=== PATIENT | male | born 1950 | race Hispanic/Latino ===

== ENCOUNTER 2017-01-17 10:40 | Emergency (ER) | payer MEDICARE, BC ==
[2017-01-17 10:44] VITALS: BMI 36.9
[2017-01-17] MEDS ORDERED: Sodium Chloride 0.9% 500 ML IV STA (11:21)
--- NOTE | 2017-01-17 11:25 | ED PDOC ---
Arrival/HPI - General Chief Complaint: Dizziness/Lightheaded Time Seen by Provider: 01/17/17 11:12 Historian: Patient - History of Present Illness Narrative History of Present Illness (Text): 01/17/17 11:174 A 66 year old male, whose past medical history includes seasonal allergies, presents to the emergency department complaining of dizziness. Patient reports this morning upon waking up he was fine and then when he got to work he started to feel dizziness. Patient describes the dizziness as the sensation of the room spinning. Dizziness is worse with movement and better at rest. Patient notes associated nausea, one episode on non bloody non bilious vomiting, and a mild headache. Patient notes some sinus congestion due to his allergies but denies any chest pain, chest palpitations, recent cold, cough, fever, runny nose, or any other complaints at this time. Patient does not have an known drug allergies , does not smoke, does not use drugs, but does drink occasional. PMD: Dr. Borrero Time/Duration: 1-3 hours Symptom Onset: Sudden Symptom Course: Unchanged Quality: Other Activities at Onset: Light Context: Work Associated Symptoms (Text): 01/17/17 12:18 Patient got up this morning feeling fine. While at work he developed acute onset of dizziness which he describes as a spinning sensation. There has been some nausea with one episode of vomiting. No headache. No head trauma. No numbness tingling or paresthesias. No weakness. No neck pain. No trauma. He has never experienced this previously. No chest pain palpitations or dyspnea. Past Medical History - Provider Review Nursing Documentation Reviewed: Yes - Infectious Disease Hx of Infectious Diseases: None - Psychiatric Hx Substance Use: No - Surgical History Hx Appendectomy: Yes - Anesthesia Hx Anesthesia: Yes Hx Anesthesia Reactions: No Family/Social History - Physician Review Nursing Documentation Reviewed: Yes Family/Social History: Unknown Family HX Smoking Status: Never Smoked Hx Alcohol Use: Yes Frequency of alcohol use: Socially Hx Substance Use: No Allergies/Home Meds Allergies/Adverse Reactions: Allergies No Known Allergies Allergy (Verified 01/17/17 10:43) Home Medications: Home Meds Medication Instructions Recorded Confirmed Aspirin [Ecotrin] 325 mg PO DAILY 01/17/17 01/17/17 DiphenhydrAMINE [Benadryl] 25 mg PO PRN PRN 06/01/17 06/01/17 Review of Systems - Physician Review All systems were reviewed & negative as marked: Yes - Review of Systems Constitutional: absent: Fevers ENT: Sinus Congestion. absent: Rhinorrhea Respiratory: absent: Cough Cardiovascular: absent: Chest Pain, Palpitations Gastrointestinal: Nausea, Vomiting Neurological: Headache, Dizziness Physical Exam Vital Signs Reviewed: Yes Vital Signs Temp Pulse Resp BP Pulse Ox 01/17/17 10:46 97.6 F 63 18 158/85 H 97 Temperature: Afebrile Blood Pressure: Hypertensive Pulse: Regular Respiratory Rate: Normal Appearance: Positive for: Well-Appearing, Non-Toxic, Uncomfortable Pain Distress: None Mental Status: Positive for: Alert and Oriented X 3 Finger Stick Blood Glucose: 147 - Systems Exam Head: Present: Atraumatic, Normocephalic Pupils: Present: PERRL Extroacular Muscles: Present: EOMI Conjunctiva: Present: Normal Ears: Present: NORMAL TM, Normal Canal. No: Erythema Mouth: Present: Moist Mucous Membranes Pharnyx: No: ERYTHEMA, EXUDATE, TONSILS ENLARGED Neck: Present: Normal Range of Motion Respiratory/Chest: Present: Clear to Auscultation, Good Air Exchange. No: Respiratory Distress, Accessory Muscle Use Cardiovascular: Present: Regular Rate and Rhythm, Normal S1, S2. No: Murmurs Abdomen: Present: Normal Bowel Sounds. No: Tenderness, Distention, Peritoneal Signs, Rebound, Guarding Back: Present: Normal Inspection Upper Extremity: Present: Normal Inspection. No: Cyanosis, Edema Lower Extremity: Present: Normal Inspection. No: Edema Neurological: Present: GCS=15, CN II-XII Intact, Speech Normal, Motor Func Grossly Intact, Normal Sensory Function, Normal Cerebellar Funct Skin: Present: Warm, Dry, Normal Color. No: Rashes Psychiatric: Present: Alert, Oriented x 3, Normal Insight, Normal Concentration Medical Decision Making ED Course and Treatment: 01/17/17 11:14 Impression: A 66 year old male with dizziness. Differential Diagnosis include but are not limited to: ACS vs. Vertigo Plan: -- EKG -- Head CT -- Labs -- Antivert, Zofran and IV Fluids -- Reassess and disposition Progress Notes: 01/17/17 12:20 CT scan of the head as read by the radiologist shows no acute findings. 01/17/17 12:24 EKG shows normal sinus rhythm rate approximately 60 with PACs and no acute ST or T-wave changes 01/17/17 12:38 Symptoms markedly improved. Nausea has completely resolved. Dizziness is almost gone. Discharged home accompanied by . Follow-up with PMD. Follow up in ER as needed. - Lab Interpretations Lab Results: 01/17/17 11:37 01/17/17 11:37 Lab Results 01/17/17 11:37: Sodium 137, Potassium 4.3, Chloride 102, Carbon Dioxide 26, Anion Gap 13, BUN 20, Creatinine 0.9, Est GFR ( Amer) > 60, Est GFR (Non- Af Amer) > 60, Random Glucose 129 H, Calcium 9.3, Magnesium 2.0, Total Bilirubin 0.7, AST 29, ALT 37, Alkaline Phosphatase 57, Lactate Dehydrogenase 430, Total Creatine Kinase 97, Troponin I < 0.01, Total Protein 7.6, Albumin 4.3 , Globulin 3.4, Albumin/Globulin Ratio 1.3 01/17/17 11:37: WBC 8.5, RBC 4.70, Hgb 14.3, Hct 41.6 L, MCV 88.5, MCH 30.4, MCHC 34.4, RDW 13.7, Plt Count 253, MPV 9.6, Gran % 78.0 H, Lymph % (Auto) 12.8 L, Trigg % (Auto) 8.0 H, Eos % (Auto) 0.8 L, Baso % (Auto) 0.4, Gran # 6.67 H, Lymph # 1.1 L, Trigg # 0.7 H, Eos # 0.1, Baso # 0.03 I have reviewed the lab results: Yes - RAD Interpretation Radiology Orders: 01/17/17 11:21 HEAD W/O CONTRAST [CT] Stat CHEST ONE VIEW [RAD] Stat Chest 1 view shows no infiltrate effusion or cardiomegaly Miter Cutter: ED Physician - Medication Orders Current Medication Orders: Discontinued Medications Sodium Chloride (Sodium Chloride 0.9%) 500 mls @ 1,000 mls/hr IV .Q30M STA Stop: 01/17/17 11:50 Last Admin: 01/17/17 11:36 Dose: 1,000 mls/hr Meclizine HCl (Antivert) 25 mg PO ONCE ONE Stop: 01/17/17 11:23 Last Admin: 01/17/17 11:36 Dose: 25 mg Ondansetron HCl (Zofran Inj) 4 mg IVP ONCE ONE Stop: 01/17/17 11:23 Last Admin: 01/17/17 11:36 Dose: 4 mg - Scribe Statement The provider has reviewed the documentation as recorded by the Wei New Provider Scribe Attestation: All medical record entries made by the Wei were at my direction and personally dictated by me. I have reviewed the chart and agree that the record accurately reflects my personal performance of the history, physical exam, medical decision making, and the department course for this patient. I have also personally directed, reviewed, and agree with the discharge instructions and disposition. Disposition/Present on Arrival - Present on Arrival Any Indicators Present on Arrival: No History of DVT/PE: No History of Uncontrolled Diabetes: No Urinary Catheter: No History of Decub. Ulcer: No History Surgical Site Infection Following: None - Disposition Have Diagnosis and Disposition been Completed?: Yes Diagnosis: Vertigo Disposition: HOME/ ROUTINE Disposition Time: 12:39 Patient Plan: Discharge Condition: IMPROVED Discharge Instructions (ExitCare): Vertigo (ED) Additional Instructions: Follow-up with PMD. Follow-up in the ER as needed. Prescriptions: Meclizine [Meclizine*] 25 mg PO Q6 #20 tab Ondansetron [Zofran Odt] 4 mg SL Q6 #20 odt Referrals: Nick Borrero MD [Primary Care Provider] - Follow up with primary
[2017-01-17 11:39] LABS: ADD MANUAL DIFF? NO
[2017-01-17 11:49] LABS: BASO # 0.03 K/mm3 (0.0-2.0); BASO % 0.4 % (0.0-3.0); EOS # 0.1 (0.0-0.7); EOS % 0.8 % (1.5-5.0); GRAN # 6.67 (1.4-6.5); HEMATOCRIT 41.6 % (42.0-52.0); LYMPH # 1.1 (1.2-3.4); LYMPH % 12.8 % (22.0-35.0); MEAN CELL VOLUME 88.5 fL (80.0-105.0); MEAN CORPUSCULAR HEMOGLOBIN 30.4 pg (25.0-35.0); MEAN CORPUSCULAR HGB CONC 34.4 g/dl (31.0-37.0); MEAN PLATELET VOLUME 9.6 fl (7.0-11.0); MONO # 0.7 (0.1-0.6); PLATELET COUNT 253 10^3/uL (120.0-450.0); RED CELL DISTRIBUTION WIDTH 13.7 % (11.5-14.5); WHITE BLOOD COUNT 8.5 10^3/ul (4.5-11.0)
[2017-01-17 11:58] LABS: ALB/GLOB RATIO 1.3 (1.1-1.8); ALKALINE PHOSPHATASE 57 U/L (38-133); ALT/SGPT 37 U/L (7-56); AST/SGOT 29 U/L (15-59); BILIRUBIN,TOTAL 0.7 mg/dL (0.2-1.3); BLOOD UREA NITROGEN 20 mg/dL (7-21); CALCIUM 9.3 mg/dL (8.4-10.5); CARBON DIOXIDE 26 mmol/L (21-33); CHLORIDE 102 mmol/L (98-107); GFR AFRICAN-AMERICAN > 60; GLUCOSE,RANDOM 129 mg/dL (70-110); POTASSIUM 4.3 mmol/L (3.6-5.0); SODIUM 137 mmol/L (132-148); TOTAL PROTEIN 7.6 g/dL (5.8-8.3)
[2017-01-17 12:10] LABS: TROPONIN I < 0.01 ng/mL
--- NOTE | 2017-01-17 12:13 | CT ---
PROCEDURE: CT HEAD WITHOUT CONTRAST. HISTORY: dizzy COMPARISON: None available. TECHNIQUE: Axial computed tomography images were obtained through the head/brain without intravenous contrast. Radiation dose: Total exam DLP = 801 mGy-cm. This CT exam was performed using one or more of the following dose reduction techniques: Automated exposure control, adjustment of the mA and/or kV according to patient size, and/or use of iterative reconstruction technique. FINDINGS: HEMORRHAGE: No intracranial hemorrhage. BRAIN: No mass effect or edema. No atrophy or chronic microvascular ischemic changes. VENTRICLES: Unremarkable. No hydrocephalus. CALVARIUM: Unremarkable. PARANASAL SINUSES: Unremarkable as visualized. No significant inflammatory changes. MASTOID AIR CELLS: Unremarkable as visualized. No inflammatory changes. OTHER FINDINGS: None. IMPRESSION: Normal CT of the Head.
[2017-01-17 12:47] VITALS: BP 148/78; PULSE 60; RESP 19; TEMP 97.3; O2SAT 96
--- NOTE | 2017-01-17 13:49 | RAD ---
PROCEDURE: CHEST RADIOGRAPH, 1 VIEW HISTORY: Dizziness COMPARISON: None available. FINDINGS: LUNGS: The lungs are well inflated and clear. PLEURA: No pneumothorax or pleural fluid seen. CARDIOVASCULAR: Normal. OSSEOUS STRUCTURES: No significant abnormalities. VISUALIZED UPPER ABDOMEN: Normal. OTHER FINDINGS: None. IMPRESSION: No active pulmonary disease.
--- NOTE | 2017-01-17 16:13 | CARD ---
APPROVED REPORT EKG Measurement Heart [id number] [place] [id number] [id number] <Conclusion> Sinus rhythm with occasional APCs Otherwise normal ECG
== END 2017-01-17 12:48 | disposition home or self-care (01) ==
LOC: ED 10:40
DX: R42 Dizziness and giddiness (principal)
CPT/HCPCS: 70450; 71010; 80053; 82550; 83615; 83735; 84484; 85025; 93005; 96374; 99285; J2405; J7040